=== PATIENT | female | born 1975 | race Caucasian/White ===

== ENCOUNTER → 2016-08-30 | Outpatient (CLI) | payer BC ==
[~2016-08-30] MED LIST: MOTRIN 600600 MG/TAB PO; PERCOCET 325 MG1 TA2 PO
== END ==
LOC: MC.RAD 13:50
DX: Z12.31 Encounter for screening mammogram for malignant neoplasm of breast (principal)

== ENCOUNTER 2017-05-24 10:29 | Inpatient (IN) | payer BC ==
[~2017-05-24] VITALS: Ht 195.6 cm; Wt 134.1 kg
[2017-06-19] VITALS (18 sets, daily range): BP systolic 109–128; BP diastolic 54–73; PULSE 53–84; TEMP 97.4–98.2
[2017-06-19 10:34] LABS: BASO % 0.2 % (0.0-2.0); EOS # 0.1 (0.0-0.7); EOS % 0.8 % (0-4.0); GRAN # 8.3 (1.4-6.5); GRAN % 78.1 % (42.2-75.2); HEMATOCRIT 38.2 % (37.0-47.0); HEMOGLOBIN 12.9 g/dl (12.5-16.0); LYMPH # 1.5 (1.2-3.4); LYMPH % 13.9 % (20.0-51.0); MEAN CELL VOLUME 88 fl (80.0-100.0); MEAN CORPUSCULAR HEMOGLOBIN 30 pg (27.0-31.0); MEAN CORPUSCULAR HGB CONC 34 g/dl (33.0-37.0); MEAN PLATELET VOLUME 12.4 fl (7.4-10.4); MONO # 0.7 (0.1-0.6); MONO % 6.1 % (1.7-9.3); PLATELET COUNT 86 K/mm3 (130-400); RED BLOOD COUNT 4.36 M/mm3 (4.10-5.30); WHITE BLOOD COUNT 10.6 K/mm3 (4.8-10.8)
[2017-06-19] MEDS ORDERED: LEVOXYL0.112 MG PO (10:35)
[2017-06-19] MEDS ORDERED: PRENATAL (10:36)
[2017-06-19] MEDS ORDERED: PREDNISONE20 MG (10:36)
[2017-06-19] MEDS ORDERED: CALCIUM 600 PLU1 TAB PO (10:37)
[2017-06-20 00:11] LABS: ADD PATHOLOGY DIFF REVIEW NO
[2017-06-20 00:12] LABS: MEAN CELL VOLUME 89 fl (80.0-100.0); MEAN CORPUSCULAR HGB CONC 33 g/dl (33.0-37.0); MEAN PLATELET VOLUME 12.4 fl (7.4-10.4); PLATELET COUNT 113 K/mm3 (130-400); RED BLOOD COUNT 3.74 M/mm3 (4.10-5.30); WHITE BLOOD COUNT 16.7 K/mm3 (4.8-10.8)
[2017-06-20 00:13] LABS: HEMATOCRIT 33.1 % (37.0-47.0); MEAN CORPUSCULAR HEMOGLOBIN 29 pg (27.0-31.0)
[2017-06-20 00:28] LABS: BAND 8 % (0-10); LYMPHOCYTE 16 % (20.0-51.0); NEUTROPHILS 68 % (42.0-75.2); TOTAL CELLS COUNTED 100
[2017-06-20 00:30] LABS: ANISOCYTOSIS 2+; HYPOCHROMIA 1+; POLYCHROMASIA 1+
[2017-06-20 00:31] LABS: MICROCYTOSIS 1+
[2017-06-20 07:24] LABS: BASO % 0.2 % (0.0-2.0); EOS # 0.1 (0.0-0.7); EOS % 0.9 % (0-4.0); GRAN # 8.8 (1.4-6.5); GRAN % 73.1 % (42.2-75.2); HEMATOCRIT 28.7 % (37.0-47.0); HEMOGLOBIN 9.6 g/dl (12.5-16.0); LYMPH % 16.7 % (20.0-51.0); MEAN CELL VOLUME 88 fl (80.0-100.0); MEAN CORPUSCULAR HEMOGLOBIN 29 pg (27.0-31.0); MEAN CORPUSCULAR HGB CONC 33 g/dl (33.0-37.0); MEAN PLATELET VOLUME 12.8 fl (7.4-10.4); MONO % 8.2 % (1.7-9.3); PLATELET COUNT 93 K/mm3 (130-400); RED BLOOD COUNT 3.28 M/mm3 (4.10-5.30)
[2017-06-20 08:22] VITALS: BP 105/59; PULSE 67; TEMP 97.6
[2017-06-20 21:50] VITALS: BP 123/59; PULSE 74; TEMP 98.1
[2017-06-21 07:32] LABS: MEAN CELL VOLUME 89 fl (80.0-100.0); MEAN CORPUSCULAR HGB CONC 34 g/dl (33.0-37.0); MEAN PLATELET VOLUME 12.1 fl (7.4-10.4); PLATELET COUNT 90 K/mm3 (130-400); RED BLOOD COUNT 2.71 M/mm3 (4.10-5.30); WHITE BLOOD COUNT 9.8 K/mm3 (4.8-10.8)
[2017-06-21 07:38] LABS: HEMATOCRIT 24.1 % (37.0-47.0); HEMOGLOBIN 8.1 g/dl (12.5-16.0); MEAN CORPUSCULAR HEMOGLOBIN 30 pg (27.0-31.0)
[2017-06-21 08:30] VITALS: BP 117/58; PULSE 67; TEMP 97.6
[2017-06-21] MEDS ORDERED: FERROUS SU325 MG/TAB PO (09:09)
[2017-06-21] MEDS ORDERED: IBU600 MG PO (09:09)
[2017-06-21] MEDS ORDERED: PERCOCET 325 MG1 TA2 PO (09:09)
== END 2017-06-21 12:00 | disposition home or self-care (01) | DRG 765 ==
LOC: OB 06-19 09:59 → LDR 06-19 10:34 → OB 06-21 12:00 → LDR 06-24 10:28
PROVIDERS: Obstetrics & Gynecology; Student in an Organized Health Care Education/Training Program
PROC: 10D00Z1 Extraction of Products of Conception, Low, Open Approach (ICD-10-PCS; principal; 2017-06-19)
DX: O34.211 Maternal care for low transverse scar from previous cesarean delivery (principal); O99.12 Other diseases of the blood and blood-forming organs and certain disorders involving the immune mechanism complicating childbirth; D69.3 Immune thrombocytopenic purpura; N85.8 Other specified noninflammatory disorders of uterus; O99.284 Endocrine, nutritional and metabolic diseases complicating childbirth; E03.9 Hypothyroidism, unspecified; E28.2 Polycystic ovarian syndrome; O34.83 Maternal care for other abnormalities of pelvic organs, third trimester; Z3A.39 39 weeks gestation of pregnancy; Z37.0 Single live birth
CPT/HCPCS: J0690; J1885; J2270; J2370; J2405; J2590; J7120; J7512

== ENCOUNTER → 2018-11-20 | Outpatient (CLI) | payer BC ==
[~2018-11-20] MED LIST changes: +CALCIUM 600 PLU1 TAB PO; +FERROUS SU325 MG/TAB PO; +IBU600 MG PO; +LEVOXYL0.112 MG PO; +PREDNISONE20 MG; +PRENATAL
== END ==
LOC: MC.RAD 14:50
DX: Z12.31 Encounter for screening mammogram for malignant neoplasm of breast (principal)

== ENCOUNTER → 2020-03-07 | Outpatient (CLI) | payer BC | LOC: MC.RAD 13:56 | DX: Z12.31 Encounter for screening mammogram for malignant neoplasm of breast (principal) ==

== ENCOUNTER 2020-10-31 20:11 | Emergency (ER) | payer BC ==
[~2020-10-31] VITALS: Ht 198.1 cm; Wt 120.9 kg
[2020-10-31 20:33] VITALS: BP 115/72; TEMP 97.1
[2020-10-31 21:21] VITALS: PULSE 60
== END 2020-10-31 21:22 | disposition home or self-care (01) ==
LOC: COL.ER 20:11
DX: M79.675 Pain in left toe(s) (principal); Z88.6 Allergy status to analgesic agent; Z88.8 Allergy status to other drugs, medicaments and biological substances

== ENCOUNTER → 2021-03-28 | Outpatient (CLI) | payer BC | LOC: MC.RAD 14:30 | DX: Z12.31 Encounter for screening mammogram for malignant neoplasm of breast (principal) ==

== ENCOUNTER → 2021-06-15 | Outpatient (CLI) | payer BC | LOC: COL.RAD 06-13 11:00 | DX: D69.6 Thrombocytopenia, unspecified (principal); M47.814 Spondylosis without myelopathy or radiculopathy, thoracic region; R10.12 Left upper quadrant pain | CPT/HCPCS: Q9967 ==

== ENCOUNTER → 2021-07-17 | Outpatient (CLI) | payer BC ==
--- NOTE | 2021-07-13 15:19 | NUR ---
LMOM WITH INSTRUCTIONS AND CALL BACK NUMBER
[~2021-07-17] VITALS: Ht 198.1 cm; Wt 122.1 kg
[~2021-07-17] MED LIST changes: +GLUCOPHAGE1000 MG PO; +GLUCOPHAGE500 MG/TAB PO; +SYNTHROID0.125 MG/T PO; +VITAMIND3 5000 PO
[2021-07-17 13:26] VITALS: BP 132/56; PULSE 62; TEMP 97.7
[2021-07-17 14:10] VITALS: BP 119/82; PULSE 61
== END ==
LOC: COL.RAD 07-11 07:00
DX: M51.34 Other intervertebral disc degeneration, thoracic region (principal)
CPT/HCPCS: J1100

== ENCOUNTER → 2022-03-29 | Outpatient (CLI) | payer BC ==
[~2022-03-29] MED LIST changes: +ALDACTONE50 MG PO; +MULTIVITAMIN FO1 CAP PO; +OMEGA-3 1000 MG1 CAP PO
== END ==
LOC: MC.RAD 12:52
DX: Z12.31 Encounter for screening mammogram for malignant neoplasm of breast (principal)

== ENCOUNTER 2022-04-06 08:59 | Day surgery (SDC) | payer BC ==
[~2022-04-06] VITALS: Ht 195.6 cm; Wt 109.7 kg
[~2022-04-06 08:59] MED LIST changes: -ALDACTONE50 MG PO; -MULTIVITAMIN FO1 CAP PO; -OMEGA-3 1000 MG1 CAP PO
[2022-04-06] MEDS ORDERED: ALDACTONE50 MG PO (09:50)
[2022-04-06] MEDS ORDERED: OMEGA-3 1000 MG1 CAP PO (09:51)
[2022-04-06] MEDS ORDERED: MULTIVITAMIN FO1 CAP PO (09:51)
--- NOTE | 2022-04-06 10:26 | NUR ---
Initial visit; Patient thanked Wireless Telegrapher for offering prayer and God's blessings prior to her Colonoscopy. Wireless Telegrapher mentioned she was pleased to meet Lauren and pray with her.
[2022-04-06 10:35] VITALS: BP 111/74; PULSE 65; TEMP 97.5
[2022-04-06 11:55] VITALS: BP 110/69; PULSE 55; TEMP 97.5
--- NOTE | 2022-04-06 11:55 | NUR ---
Pt returned via cart to recliner in [facility]. A&O. VSS-see flowsheet. Given juice and coffee per request. Warm blanket given and call light in reach.
[2022-04-06 12:10] VITALS: BP 122/74; PULSE 52
[2022-04-06 12:25] VITALS: BP 115/84; PULSE 55
--- NOTE | 2022-04-06 12:35 | NUR ---
VS remain stable. Pt toelrated muffin and juice. Dr Krueger in to visit with pt post procedure and pts was on speakerphone at this time. IV removed, pressure dressing applied. Pt dressed. Discharge teaching completed, pt verbalized understanding. Taken via wheelchair to private vehicle for dc home with driving.
== END 2022-04-06 12:35 | disposition home or self-care (01) ==
LOC: SDCO 08:59
DX: Z12.11 Encounter for screening for malignant neoplasm of colon (principal); K62.89 Other specified diseases of anus and rectum; Z87.891 Personal history of nicotine dependence
CPT/HCPCS: J2704; J7030

== ENCOUNTER → 2023-05-02 | Outpatient (CLI) | payer BC ==
[~2023-05-02] MED LIST changes: +ALDACTONE50 MG PO; +MULTIVITAMIN FO1 CAP PO; +OMEGA-3 1000 MG1 CAP PO
== END ==
LOC: MC.RAD 09:02
DX: Z12.31 Encounter for screening mammogram for malignant neoplasm of breast (principal)

== ENCOUNTER → 2024-05-04 | Outpatient (CLI) | payer BC | LOC: MC.RAD 08:41 | DX: Z00.00 Encounter for general adult medical examination without abnormal findings (principal); Z12.31 Encounter for screening mammogram for malignant neoplasm of breast ==